=== PATIENT | female | born 1960 | race Caucasian/White ===

== ENCOUNTER → 2019-05-07 | Outpatient (CLI) | payer BC ==
--- NOTE | 2019-05-07 16:07 | RAD ---
Ultrasound carotid Doppler 05/07/2019 12:30 PM INDICATION: Dizziness COMPARISON: None available TECHNIQUE: Sonographic imaging of the carotid vasculature was performed utilizing grayscale, color Doppler and spectral waveform analysis. FINDINGS: (All velocities are measured cm per second) Right carotid: Mild plaque is identified at the right carotid bifurcation with less than 50% stenosis of the carotid lumen. Peak systolic velocity: Proximal common carotid artery: 108 Middle common carotid artery: 113 Distal common carotid artery: 136 Proximal internal carotid artery: 86 Middle internal carotid artery: 100 Distal internal carotid artery: 110 End-diastolic velocity: 41 External carotid artery: 91 Internal carotid artery/common carotid artery ratio: 0.76-0.97 Vertebral artery: Antegrade flow Left carotid: Mild calcified atheromatous plaque is identified with less than 50% stenosis of the proximal left cervical internal carotid artery. Peak systolic velocity: Proximal common carotid artery: 136 Middle common carotid artery: 106 Distal common carotid artery: 110 Proximal internal carotid artery: 134 Middle internal carotid artery: 115 Distal internal carotid artery: 121 End-diastolic velocity: 46 External carotid artery: 197 Internal carotid artery/common carotid artery ratio: 1.08-1.26 Vertebral artery: Antegrade flow IMPRESSION: 1. There is 50-60% (moderate) stenosis involving the cervical internal carotid arteries bilaterally. 2. Antegrade flow is identified in the vertebral arteries. 3. Evaluation of the carotid vasculature and measurements for luminal stenosis was performed utilizing NASCET criteria. Electronically signed by: Mylene Kothari MD (05/07/2019 4:04 PM) [id number]
== END | disposition home or self-care (01) ==
LOC: US 14:04
PROVIDERS: ATTEND Nurse Practitioner Gerontology
DX: I65.23 Occlusion and stenosis of bilateral carotid arteries (principal)
CPT/HCPCS: 93880